=== PATIENT | male | born 1980 | race African-American/Black ===

== ENCOUNTER 2025-06-02 11:38 | Emergency (ER) | payer OTHER, BC ==
[~2025-06-02] VITALS: Ht 185.4 cm; Wt 106.6 kg
[2025-06-02] MEDS: KETOROLAC TROMETHAMINE 60 MG/2 ML VIAL IM STA (13:25)
[2025-06-02] MEDS ORDERED: CYCLOBENZAPRINE5 MG PO (15:37)
[2025-06-02] MEDS ORDERED: KETOROLAC TROME10 MG PO (15:37)
[2025-06-02 15:54] VITALS: PULSE 78; RESP 16; TEMP 98.7; O2SAT 100
== END 2025-06-02 15:42 | disposition home or self-care (01) ==
LOC: ER 11:45
DX: M54.41 Lumbago with sciatica, right side (principal); M47.817 Spondylosis without myelopathy or radiculopathy, lumbosacral region
CPT/HCPCS: 74176; 99283; J1885